=== PATIENT | male | born 1950 | race Caucasian/White ===

== ENCOUNTER 2017-06-08 10:44 | Emergency (ER) | payer OTHER ==
[2017-06-08 10:51] VITALS: BP 123/72
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
== END 2017-06-08 11:52 | disposition home or self-care (01) ==
LOC: UCEAST 10:44
DX: L03.90 Cellulitis, unspecified (principal); Z88.0 Allergy status to penicillin
CPT/HCPCS: 99212; G0463

== ENCOUNTER 2018-07-02 12:57 | Emergency (ER) | payer OTHER ==
[2018-07-02 14:45] VITALS: BP 133/89
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
[2018-07-02] MEDS ORDERED: Lidocaine 1%* 5 ML VIAL INJ ONE (15:05)
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
--- NOTE | 2018-07-02 16:22 | RAD ---
INDICATION: The patient is status post reduction of the dislocated right middle finger proximal interphalangeal joint COMPARISON: Same day right hand radiograph acquired at 1450 hours TECHNIQUE: 3 views of the right middle finger were obtained. FINDINGS: There has been reduction of the previously dislocated right middle finger proximal interphalangeal joint. There is no radiographically apparent fracture of the right middle finger, though there is soft tissue swelling surrounding the proximal interphalangeal joint. Again noted is a minimally displaced fracture at the radial proximal corner of the right small finger proximal phalanx. IMPRESSION: INTERVAL REDUCTION OF DISLOCATED RIGHT MIDDLE FINGER PROXIMAL INTERPHALANGEAL JOINT.
== END 2018-07-02 16:25 | disposition home or self-care (01) ==
LOC: UCEAST 12:57
DX: S62.616A Displaced fracture of proximal phalanx of right little finger, initial encounter for closed fracture (principal); S63.282A Dislocation of proximal interphalangeal joint of right middle finger, initial encounter; V18.0XXA Pedal cycle driver injured in noncollision transport accident in nontraffic accident, initial encounter; Y93.55 Activity, bike riding; Y92.9 Unspecified place or not applicable; Z88.0 Allergy status to penicillin
CPT/HCPCS: 26775; 73140; 99211; 99213; G0463